=== PATIENT | female | born 1965 | race Two or more races ===

== ENCOUNTER 2018-12-11 22:24 | Emergency (ER) | payer OTHER ==
[~2018-12-11] VITALS: Ht 162.6 cm; Wt 71.2 kg
[2018-12-11 22:35] VITALS: BP 135/80
--- NOTE | 2018-12-11 22:35 | NUR ---
ED Nurse Note: Pt AAO X4, vss with no acute distress. pt walked in c/o flu like sx, cough, sneeze, and nasal congestion, pt reports diarrhea x 3 days but denies abd pain, also reports weakness from frequent diarrhea.
[2018-12-11] MEDS ORDERED: DICYCLOMINE HCL10 MG ORAL (23:39)
[2018-12-11] MEDS ORDERED: ONDANSETRON ODT4 MG BC (23:39)
[2018-12-11] MEDS ORDERED: LOPERAMIDE2 MG PO (23:39)
[2018-12-11] MEDS ORDERED: Dicyclomine HCl 10mg/5ml oral soln ORAL ONE (23:45)
[2018-12-11 23:48] VITALS: BP 135/80
--- NOTE | 2018-12-11 23:48 | NUR ---
ED Nurse Note: Pt cleared by health care Provider for discharge. DC instructions/prescription was given and explained to pt and verbalized understanding of teachings. All medical deviecs such as ID band removed. Pt is AAO x4, VSS, ambulatory and left with all personal belongings.
--- NOTE | 2018-12-13 21:01 | Emergency Room Report ---
History of Present Illness General Chief Complaint: Diarrhea Source: Patient Present Illness HPI Patient is a 53 year old female who presented after increased vomiting and associated watery diarrhea. No hematemesis or bloody stools. Mild abdominal cramping intermittent in nature. No abdominal distention. No fever. No dizziness or lightheadedness. Patient had no recent travel. No recent antibiotic use. No bad food exposure. No sick contacts at home with similar illness. No history of opiate dependence. No daily marijuana use. Denies recent alcohol intake. Denies feeling dizzy or lightheaded. Allergies: Coded Allergies: No Known Allergies (Unverified , 12/11/18) Patient History Past Medical History: see triage record Reviewed Nursing Documentation: PMH: Agreed; PSxH: Agreed Nursing Documentation-PMH Past Medical History: No History, Except For Hx Hypertension: Yes Hx Diabetes: Yes Review of Systems All Other Systems: negative except mentioned in HPI Physical Exam Vital Signs Date Time Temp Pulse Resp B/P (MAP) Pulse Ox O2 Delivery O2 Flow Rate FiO2 12/11/18 22:28 98.2 95 18 122/77 (92) 96 Room Air General Appearance: well appearing, no apparent distress, alert, GCS 15 Head: normocephalic, atraumatic ENT: hearing grossly normal, normal voice, moist mucus membranes Neck: full range of motion, supple Respiratory: lungs clear, no respiratory distress, speaking full sentences Cardiovascular #1: regular rate, rhythm Gastrointestinal: normal inspection, non tender, soft, no mass Musculoskeletal: back normal, normal range of motion Neurologic: normal inspection, alert, oriented x3, normal gait Psychiatric: normal inspection, mood/affect normal Skin: no rash Medical Decision Making Diagnostic Impression: Primary Impression: Viral gastroenteritis ER Course Patient presented for vomiting and diarrhea. Differential diagnosis included but was not limited to gastroenteritis, food poisoning, colitis, perforated viscous, appendicitis, marijuana hyperemesis, bacterial enteritis, among others. Patient's overall clinical picture is benign. Patient was given antiemetics. Patient had improvement in nausea and was able to tolerate oral fluids. She appears stable for close outpatient follow up. Patient was advised to return if any worsening of condition, or any concerns. Patient was advised to follow up with primary care physician for recheck in 1-2 days. Last Vital Signs Date Time Temp Pulse Resp B/P (MAP) Pulse Ox O2 Delivery O2 Flow Rate FiO2 12/11/18 23:48 98.2 84 18 135/80 96 Room Air Status: improved Disposition: HOME, SELF-CARE Condition: Stable Scripts Loperamide Hcl (LOPERAMIDE) 2 Mg Capsule 2 MG PO DAILY, #30 CAP Prov: Tavo Woodson MD 12/11/18 Dicyclomine Hcl* (DICYCLOMINE HCL*) 10 Mg Capsule 10 MG ORAL QID, #20 CAP Prov: Tavo Woodson MD 12/11/18 Ondansetron Odt* (ZOFRAN ODT*) 4 Mg Tab.rapdis 4 MG BC EVERY 6 HOURS PRN for Nausea & Vomiting, #10 TAB 0 Refills Prov: Tavo Woodson MD 12/11/18 Referrals: NON PHYSICIAN (PCP) Patient Instructions: Viral Gastroenteritis, Adult Tavo Woodson MD Dec 13, 2018 21:01
== END 2018-12-11 23:50 | disposition home or self-care (01) ==
LOC: EMR 23:49
DX: A08.4 Viral intestinal infection, unspecified (principal); I10 Essential (primary) hypertension; E11.9 Type 2 diabetes mellitus without complications
CPT/HCPCS: 82962; 99282